=== PATIENT | female | born 1940 | race Caucasian/White ===

== ENCOUNTER 2021-08-28 11:40 | Emergency (ER) | payer OTHER ==
[~2021-08-28] VITALS: Ht 167.6 cm; Wt 62.6 kg
[2021-08-28] MEDS ORDERED: TRADJENTA5 MG PO (12:43)
[2021-08-28] MEDS ORDERED: GLUMETZA500 MG PO (12:43)
[2021-08-28] MEDS ORDERED: NEXIUM10 MG PO (12:43)
[2021-08-28] MEDS ORDERED: SYNTHROID75 MCG PO (12:49)
[2021-08-28] MEDS ORDERED: ULTRAM50 MG PO (15:46)
[2021-08-28] MEDS ORDERED: KETO10TA2 PO (15:46)
== END 2021-08-28 18:34 | disposition home or self-care (01) ==
LOC: ER 11:40
DX: S52.592A Other fractures of lower end of left radius, initial encounter for closed fracture (principal); W18.30XA Fall on same level, unspecified, initial encounter; Y92.59 Other trade areas as the place of occurrence of the external cause; Y99.8 Other external cause status